=== PATIENT | female | born 1995 | race Asian ===

== ENCOUNTER 2021-10-07 12:22 | Outpatient (REF) | payer SELFPAY ==
[2021-10-07 13:28] LABS: Binax Internal Control QC Valid; Binax Lot number: 9864; Binax Now Covid-19 Ag Negative (Negative)
== END 2021-10-07 12:23 | disposition home or self-care (01) ==
LOC: HO.LAB 12:22
PROVIDERS: Visit Provider Internal Medicine
DX: Z20.822 Contact with and (suspected) exposure to COVID-19 (principal)
CPT/HCPCS: C9803